=== PATIENT | female | born 1990 | race Caucasian/White ===

== ENCOUNTER 2017-05-05 07:33 | Inpatient (IN) | payer BC ==
[~2017-05-05] VITALS: Ht 165.1 cm; Wt 88.2 kg
[~2017-05-05 07:33] MED LIST: LEVOXYL0.075 MG PO; MIRALAX PA17 GM/Dose PO; PRENATAL1 TA4 PO; PRIL40 PO; ZANTAC 150MG T150 MG; ZOLOFT 50MG50 MG PO
[2017-06-21] VITALS (29 sets, daily range): BP systolic 80–131; BP diastolic 50–76; PULSE 58–103; TEMP 37.8
[2017-06-21] MEDS ORDERED: COLACE 100100 MG/CAP PO (07:47)
[2017-06-21] MEDS ORDERED: TYLENOL 500MG500 MG (07:48)
[2017-06-21 07:52] LABS: BASO % 0.5 % (0.0-2.0); EOS # 0.1 (0.0-0.7); EOS % 1.6 % (0-4.0); GRAN # 5.5 (1.4-6.5); HEMOGLOBIN 11.2 g/dl (12.5-16.0); LYMPH % 23.6 % (20.0-51.0); MEAN CELL VOLUME 84 fl (80.0-100.0); MEAN CORPUSCULAR HEMOGLOBIN 27 pg (27.0-31.0); MEAN CORPUSCULAR HGB CONC 32 g/dl (33.0-37.0); MEAN PLATELET VOLUME 11.3 fl (7.4-10.4); MONO # 0.6 (0.1-0.6); MONO % 7.1 % (1.7-9.3); PLATELET COUNT 163 K/mm3 (130-400); RED BLOOD COUNT 4.16 M/mm3 (4.10-5.30); REDCELL DISTRIBUTION WIDTH-CV 14.1 % (11.5-14.5)
[2017-06-21 07:53] LABS: HEMATOCRIT 34.9 % (37.0-47.0)
[2017-06-22 08:00] VITALS: BP 123/65; PULSE 64; TEMP 98.2
[2017-06-22] MEDS ORDERED: IBU800 M1 PO (09:08)
[2017-06-22] MEDS ORDERED: PERCOCET 325 MG1 TA2 PO (09:08)
[2017-06-22 16:09] VITALS: BP 114/62; PULSE 64; TEMP 98.1
== END 2017-06-22 16:28 | disposition home or self-care (01) | DRG 775 ==
LOC: LDR 06-21 06:49 → OB 06-21 17:00 → LDR 06-27 07:33
PROVIDERS: Obstetrics & Gynecology
PROC: 10E0XZZ Delivery of Products of Conception, External Approach (ICD-10-PCS; principal; 2017-06-21)
PROC: 0HQ9XZZ Repair Perineum Skin, External Approach (ICD-10-PCS; 2017-06-21)
DX: O69.1XX0 Labor and delivery complicated by cord around neck, with compression, not applicable or unspecified (principal); O70.0 First degree perineal laceration during delivery; Z37.0 Single live birth; Z3A.39 39 weeks gestation of pregnancy
CPT/HCPCS: J2405; J2590; J7120

== ENCOUNTER → 2017-11-09 | Outpatient (REF) ==
[~2017-11-09] MED LIST changes: +COLACE 100100 MG/CAP PO; +IBU800 M1 PO; +PERCOCET 325 MG1 TA2 PO; +TYLENOL 500MG500 MG
[2017-11-09 08:52] LABS: IRON,SERUM 61 ug/dL (35-150)
[2017-11-09 08:53] LABS: C-REACTIVE PROTEIN < 0.5 mg/dL (0.0-0.9)
[2017-11-09 08:57] LABS: TOTAL IRON BINDING CAPACITY 365 ug/dL (265-497)
[2017-11-09 09:48] LABS: FERRITIN 13 ng/mL (6-137)
== END ==
LOC: ZLAB.WCH 08:38
PROVIDERS: Internal Medicine
DX: Z01.89 Encounter for other specified special examinations (principal)

== ENCOUNTER 2018-05-26 14:58 | Outpatient (CLI) | payer BC ==
[~2018-05-26] VITALS: Ht 165.1 cm; Wt 68.6 kg
[~2018-05-26 14:58] MED LIST changes: -LEVOXYL0.075 MG PO; +LEVOXYL0.125 MG PO
[2018-05-26] MEDS ORDERED: VITAMIN B-625 MG PO (15:38)
[2018-05-26 16:10] VITALS: BP 97/57; PULSE 83; TEMP 98.5
== END 2018-05-26 16:56 | disposition home or self-care (01) ==
LOC: EUO 14:58
DX: O21.1 Hyperemesis gravidarum with metabolic disturbance (principal); Z3A.13 13 weeks gestation of pregnancy
CPT/HCPCS: J2405; J7120

== ENCOUNTER 2018-11-24 14:56 | Inpatient (IN) | payer BC ==
[~2018-11-24] VITALS: Ht 162.6 cm; Wt 80.5 kg
[2018-11-24] VITALS (19 sets, daily range): BP systolic 88–131; BP diastolic 50–77; PULSE 78–95; TEMP 98.4
[~2018-11-24 14:56] MED LIST changes: +VITAMIN B-625 MG PO
--- NOTE | 2018-11-24 15:05 | NUR ---
1505- Pt arrives on unit ambulatory with , Pt was sent over from office in active labor. Oriented to room. Pt into bathroom to change into gown. 1510- Pt into bed, EFM and TOCO on and tracing. Assessment completed. IV started. Consents signed.
[2018-11-24 16:17] LABS: BASO % 0.1 % (0.0-2.0); EOS # 0.1 (0.0-0.7); GRAN # 6.9 (1.4-6.5); GRAN % 71.3 % (42.2-75.2); HEMOGLOBIN 10.1 g/dl (12.5-16.0); LYMPH # 1.9 (1.2-3.4); LYMPH % 19.5 % (20.0-51.0); MEAN CELL VOLUME 85 fl (80.0-100.0); MEAN CORPUSCULAR HEMOGLOBIN 27 pg (27.0-31.0); MEAN CORPUSCULAR HGB CONC 32 g/dl (33.0-37.0); MEAN PLATELET VOLUME 11.3 fl (7.4-10.4); MONO # 0.7 (0.1-0.6); MONO % 7.7 % (1.7-9.3); PLATELET COUNT 145 K/mm3 (130-400); RED BLOOD COUNT 3.75 M/mm3 (4.10-5.30); REDCELL DISTRIBUTION WIDTH-CV 15.1 % (11.5-14.5)
--- NOTE | 2018-11-24 16:30 | NUR ---
1610- Pt up to void. Room changed to LR6 due to computer not working in LR5. Pt and understanding. 1613- Pt into bed in LR6, EFM and TOCO on and tracing.
--- NOTE | 2018-11-24 17:30 | NUR ---
1711- CA Lamas at bedside for epidural placement. Pt assisted to sitting on side of bed. 1714- O2 sat monitor on and tracing. FHR scratchy due to maternal position. 1723- Test dose, see anesthesia record. 1726- Pt assisted to semi-fowlers with WL. EFM and TOCO adjusted. Pt tolerated well.
--- NOTE | 2018-11-24 18:30 | NUR ---
183- Dr. Garcia at the bedside. SVE per Dr. Garcia. 183- Rainey removed without complications. 1834- Pt set up for delivery. 1837- Pushing started with contractions. 1840- of viable female . placed on mom's abdomen. Cords clamped and cut. Care of the given to nursery RN at the bedside. 1842- of placenta. Pitocin started at 333ml/hr per order and protocol. Fundus firm per Dr. Garcia with lochia WNL.
--- NOTE | 2018-11-24 21:20 | NUR ---
Pt up to the bathroom with standby assist and without complications. Pt was not able to void at this time. Modesta-care done. Pt transferred to room 208 ambulatory. Oriented to room, bed and call light with in reach. Plan of care reviewed.
[2018-11-25 01:33] VITALS: BP 107/62; PULSE 73; TEMP 98.7
[2018-11-25 05:24] VITALS: BP 97/50; PULSE 79; TEMP 98.1
[2018-11-25] MEDS ORDERED: IBU800 M1 PO (08:54)
[2018-11-25 09:00] VITALS: BP 109/64; PULSE 85; TEMP 97.9
--- NOTE | 2018-11-25 11:23 | NUR ---
Initial visit; Parents thanked Firefighting Equipment Specialist for offering congratulations and God's blessings for the of their daughter. Firefighting Equipment Specialist thanked family for choosing [facility].
[2018-11-25 16:46] VITALS: BP 99/59; PULSE 74; TEMP 98.3
--- NOTE | 2018-11-25 19:40 | NUR ---
PT IS PREPARING FOR DISCHARGE PAPAERWORK IS REVIEWED QUESTIONS DENIED. MOM VOICES UNDERSTANDING PT IS ESCORTED OFF UNIT BY THIS RN
== END 2018-11-25 19:45 | disposition home or self-care (01) | DRG 807 ==
LOC: LDRO 14:56 → LDR 15:01 → OB 21:30
PROVIDERS: Obstetrics & Gynecology; ADMIT Obstetrics & Gynecology
PROC: 10E0XZZ Delivery of Products of Conception, External Approach (ICD-10-PCS; principal; 2018-11-24)
PROC: 0HQ9XZZ Repair Perineum Skin, External Approach (ICD-10-PCS; 2018-11-24)
DX: O99.62 Diseases of the digestive system complicating childbirth (principal); Z37.0 Single live birth; K58.9 Irritable bowel syndrome, unspecified; O99.284 Endocrine, nutritional and metabolic diseases complicating childbirth; E03.9 Hypothyroidism, unspecified; Z3A.39 39 weeks gestation of pregnancy; O70.0 First degree perineal laceration during delivery
CPT/HCPCS: J2590; J7120

== ENCOUNTER → 2020-01-02 | Outpatient (CLI) | payer BC | LOC: COL.PUL 08-04 08:00 | DX: R06.02 Shortness of breath (principal) ==

== ENCOUNTER → 2020-03-05 | Outpatient (REF) | LOC: COL.CARD 13:08 | DX: Z01.810 Encounter for preprocedural cardiovascular examination (principal) ==

== ENCOUNTER → 2021-09-25 | Outpatient (CLI) | payer OTHER | LOC: COL.PUL 09:31 | DX: R06.02 Shortness of breath (principal); R06.00 Dyspnea, unspecified | CPT/HCPCS: J7674 ==

== ENCOUNTER 2023-05-10 12:19 | Outpatient (CLI) | payer OTHER ==
[~2023-05-10] VITALS: Ht 162.6 cm; Wt 86.5 kg
[~2023-05-10 12:19] MED LIST changes: +FLONASEALLERGY NS; +PRILOTC PO; +TUMS ULTRA ST1000 MG PO; +TYLENOL 500MG500 MG PO
[2023-05-10 13:35] VITALS: BP 120/74; PULSE 70; TEMP 98
[2023-05-10 15:15] VITALS: BP 110/69; PULSE 60
--- NOTE | 2023-05-10 15:15 | NUR ---
Pt arrived to room 10 via cart,Report from YAMILE Mars.
[2023-05-10 15:30] VITALS: BP 104/65; PULSE 64
[2023-05-10 15:45] VITALS: BP 108/59; PULSE 58
[2023-05-10 16:00] VITALS: BP 110/62; PULSE 56
--- NOTE | 2023-05-10 16:29 | NUR ---
Discharge instructions given to pt.Pt verbalizes understanding.Pt escorted out by this nurse.
== END 2023-05-10 16:39 ==
LOC: COL.RAD 12:19
DX: G96.01 Cranial cerebrospinal fluid leak, spontaneous (principal); H47.11 Papilledema associated with increased intracranial pressure

== ENCOUNTER 2023-08-02 08:52 | Day surgery (SDC) | payer OTHER ==
[~2023-08-02 08:52] MED LIST changes: +LR 1,000 ML IV SCH
[2023-08-02] MEDS ORDERED: PRILOSEC 20MG20 MG PO (10:37)
[2023-08-02] MEDS ORDERED: ZANAFLEX 4MG TAB4 MG PO (10:38)
[2023-08-02] MEDS ORDERED: Ketorolac 30 MG/ML VIAL ONE (10:51)
[2023-08-02] MEDS ORDERED: fentaNYL 50 MCG/ML 2 ML VIAL ONE (10:51)
[2023-08-02] MEDS ORDERED: Lidocaine PF 2% (20 MG/ML) 5 ML VIAL ONE (10:51)
[2023-08-02] MEDS ORDERED: Ondansetron 4 MG/2 ML VIAL ONE ×2 (10:51→16:22)
--- NOTE | 2023-08-02 14:36 | NUR ---
PREVIOUS CHARTING DONE ON PAPER DUE TO UNPLANNED DOWN TIME. PT HAS BEEN UPDATED ON SURGERY DELAY X 2.
[2023-08-02] MEDS ORDERED: HYDROmorphone 2 MG/1 ML VIAL IV PRN (15:15)
[2023-08-02] MEDS ORDERED: Morphine 4 MG/ML VIAL IV PRN (15:15)
[2023-08-02] MEDS ORDERED: Meperidine 50 MG/ML 1 ML VIAL IV PRN (15:15)
[2023-08-02] MEDS ORDERED: Ondansetron 4 MG/2 ML VIAL IV PRN ×2 (15:15→17:00)
[2023-08-02] MEDS ORDERED: Gentamicin 80 MG/50 ML IV.SOLN IR ONE (16:30)
[2023-08-02 16:56] VITALS: BP 107/57; PULSE 66; TEMP 98.3
[2023-08-02] MEDS ORDERED: ULTRAM 50MG TAB50 MG PO (16:57)
[2023-08-02 17:00] VITALS: BP 108/58; PULSE 71
[2023-08-02] MEDS ORDERED: oxyCODONE/Acetaminophen 5-325 MG TAB PO PRN (17:00)
[2023-08-02 17:15] VITALS: BP 107/59; PULSE 65
--- NOTE | 2023-08-02 17:53 | NUR ---
Pt returned to room at 1656. Pt easliy arousable. VSS-see flowsheet. Pt tolerated oral intake. Dressing to RUE remains c/d/i. IV removed and pressure dressing applied. DC teaching completed with pt and pts spouse-verbalized understanding. Pt taken via wheelchair to private vehicle for dc home with spouse to drive.
== END 2023-08-02 17:55 | disposition home or self-care (01) ==
LOC: SDCO 08:52
DX: G56.01 Carpal tunnel syndrome, right upper limb (principal); M79.89 Other specified soft tissue disorders; K21.9 Gastro-esophageal reflux disease without esophagitis; Z79.899 Other long term (current) drug therapy
CPT/HCPCS: J0665; J0690; J0737; J1580; J1885; J2405; J2704; J3010